=== PATIENT | male | born 1955 | race Asian ===

== ENCOUNTER 2019-02-15 09:49 | Emergency (ER) | payer BC ==
[~2019-02-15] VITALS: Ht 177.8 cm; Wt 99.8 kg
--- NOTE | 2019-02-15 09:49 | NUR ---
Patient arrived via BLS ambulanc with compliant of gross eye swelling, redness and pain, patient was reports to have undergone eye irrigation by bystander prior to their arrival. Patient was immediately place on eye wash station with high flow irrigation.
--- NOTE | 2019-02-15 09:50 | NUR ---
Pt is here for c/o left eye pain 04/18 after chemical splash while at work, redness and swelling noted to sclera, redness and mild swelling with hot sensation to left eye orbit. Pt states blurred vision, alert and oriented x4, ambulated with steady gait.
--- NOTE | 2019-02-15 09:51 | NUR ---
ER at bedside examining patient.
--- NOTE | 2019-02-15 10:02 | NUR ---
Patient was placed in bed 8. Placed on checo's lense with 1L NS applied. Patient is able to count fingers, visual acuity was deferred to allow prompt eye irrigation.
[2019-02-15 10:10] VITALS: BP_SYST 164
--- NOTE | 2019-02-15 10:30 | NUR ---
Vision acuity performed, left eye is 20/70, right 20/30, MD aware.
[2019-02-15] MEDS ORDERED: IBUPROFEN 800 MG TABLET PO ONE (10:45)
[2019-02-15 11:35] VITALS: BP_SYST 135
--- NOTE | 2019-02-15 11:35 | NUR ---
Patient given written and verbal discharge instructions and verbalizes understanding. ER MD discussed with patient the results and treatment provided. Patient in stable condition. ID arm band removed. Rx of Kertola Tromethamine0.5 % Ophthalmic solution and motrin 800mg given. Patient educated on pain management and to follow up with PMD. Pain Scale 3/10. Opportunity for questions provided and answered. Medication side effect fact sheet provided.
== END 2019-02-15 11:35 | disposition home or self-care (01) ==
LOC: SED 09:49
DX: H10.212 Acute toxic conjunctivitis, left eye (principal)
CPT/HCPCS: 99283